=== PATIENT | male | born 1990 | race Caucasian/White ===

== ENCOUNTER 2017-07-18 13:17 | Emergency (ER) | payer MEDICAID, OTHER ==
[~2017-07-18] VITALS: Ht 180.3 cm; Wt 80.1 kg
[2017-07-18 13:18] VITALS: BP 152/99
== END 2017-07-18 14:27 | disposition home or self-care (01) ==
LOC: ED 14:21
DX: S80.12XA Contusion of left lower leg, initial encounter (principal); M54.5 Low back pain; R51 Headache; Y04.0XXA Assault by unarmed brawl or fight, initial encounter; Y93.89 Activity, other specified; Y92.89 Other specified places as the place of occurrence of the external cause; Y99.8 Other external cause status
CPT/HCPCS: 99284

== ENCOUNTER 2017-08-01 11:15 | Emergency (ER) | payer MEDICAID ==
[~2017-08-01] VITALS: Ht 177.8 cm; Wt 80.0 kg
[2017-08-01 11:37] VITALS: BP 110/72
== END 2017-08-01 13:34 | disposition home or self-care (01) ==
LOC: ED 13:06
DX: L03.115 Cellulitis of right lower limb (principal)
CPT/HCPCS: 99283

== ENCOUNTER 2017-08-27 21:55 | Emergency (ER) | payer MEDICAID ==
[~2017-08-27] VITALS: Ht 177.8 cm; Wt 81.4 kg
[2017-08-27 21:57] VITALS: BP 126/77
[2017-08-27] MEDS ORDERED: FLUCONAZOLE 100 MG TABLET PO ONE (23:00)
== END 2017-08-27 23:26 | disposition home or self-care (01) ==
LOC: ED 22:39
DX: L03.115 Cellulitis of right lower limb (principal); B35.4 Tinea corporis; F17.200 Nicotine dependence, unspecified, uncomplicated
CPT/HCPCS: 99283

== ENCOUNTER 2017-09-30 23:22 | Emergency (ER) | payer MEDICAID ==
[~2017-09-30] VITALS: Ht 177.8 cm; Wt 75.0 kg
[2017-10-01] MEDS ORDERED: BUPR-173 PO (00:05)
[2017-10-01 00:15] LABS: BASOPHILS # (AUTO) 0.09 x10^3/uL (0-0.1); BASOPHILS % (AUTO) 1 % (0-1); EOSINOPHILS # (AUTO) 0.42 x10^3/uL (0-0.4); EOSINOPHILS % (AUTO) 4 % (1-7); LYMPHOCYTES % (AUTO) 23 % (22-44); MD NO; MEAN CORPUSCULAR HEMOGLOBIN 29.9 pg (27.5-34.5); MEAN CORPUSCULAR HGB CONC 33.8 g/dL (33.2-36.2); MEAN CORPUSCULAR VOLUME 88.6 fL (81-97); MONOCYTES % (AUTO) 10 % (2-9); NEUTROPHILS % (AUTO) 63 % (42-75); PLATELET COUNT 427 x10^3/uL (130-400); RED BLOOD COUNT 5.65 x10^6/uL (4.38-5.82)
[2017-10-01 00:25] LABS: ALBUMIN 4.3 g/dL (3.4-5.0); ANION GAP 7 mmol/L (5-15); CALCIUM 9.3 mg/dL (8.5-10.1); CHLORIDE 106 mmol/L (98-107); CREATININE 1.06 mg/dL (0.7-1.3)
[2017-10-01 01:01] VITALS: BP 115/70
== END 2017-10-01 01:41 | disposition home or self-care (01) ==
LOC: ED 23:59
DX: R21 Rash and other nonspecific skin eruption (principal); L01.01 Non-bullous impetigo; B35.9 Dermatophytosis, unspecified; F17.200 Nicotine dependence, unspecified, uncomplicated
CPT/HCPCS: 36415; 80048; 82040; 85025; 99284